=== PATIENT | female | born 1975 | race Hispanic/Latino ===

== ENCOUNTER 2019-07-09 13:28 | Emergency (ER) | payer MEDICARE ==
[2019-07-09] MEDS ORDERED: FAMOTIDINE 20MG TAB 20 MG TAB ONE (14:14)
[2019-07-09] MEDS ORDERED: DEXAMETHASONE SOD PHOSPHATE 10MG/ML 1ML VIAL ONE (14:14)
== END 2019-07-09 15:02 | disposition home or self-care (01) ==
LOC: EDH 13:28
DX: T78.40XA Allergy, unspecified, initial encounter (principal); J45.909 Unspecified asthma, uncomplicated; M79.7 Fibromyalgia; Z88.1 Allergy status to other antibiotic agents; Z88.2 Allergy status to sulfonamides; X58.XXXA Exposure to other specified factors, initial encounter
CPT/HCPCS: 96372; 99283; J1100

== ENCOUNTER 2020-10-08 05:32 | Day surgery (SDC) | payer MEDICARE ==
[2020-10-07 11:25] LABS: BASOPHILS % (AUTO) 0.3 % (0.0-5.0); EOSINOPHILS % (AUTO) 1.6 % (0.0-8.0); HEMATOCRIT 37.9 % (36-48); MEAN CORPUSCULAR HEMOGLOBIN 31.3 pg (27.0-33.0); MEAN CORPUSCULAR HGB CONC 31.1 g/dL (32.0-36.0); MEAN CORPUSCULAR VOLUME 100.5 fL (79-99); MONOCYTES % (AUTO) 7.9 % (3.0-13.0); NEUTROPHILS % (AUTO) 65.2 % (40.0-77.0); PLATELET COUNT (AUTO) 278 K/uL (130-400); RED BLOOD CELL COUNT(AUTO) 3.77 MIL/uL (4.00-5.50); RED CELL DISTRIBUTION WIDTH 13.8 % (11.0-15.5); WHITE BLOOD COUNT (AUTO) 9.5 K/uL (4.8-10.8)
[2020-10-07 14:18] VITALS: BP 115/68
[~2020-10-08] VITALS: Ht 157.5 cm; Wt 56.2 kg
[2020-10-08] VITALS (17 sets, daily range): BP systolic 95–114; BP diastolic 61–74
[~2020-10-08 05:32] MED LIST: PREG150C PO; PYRI60TA2 PO; ZOLP10TA2 PO
[2020-10-08] MEDS: LACTATED RINGERS 1000ML 1,000 ML IV SCH ×2 (07:13→09:45)
[2020-10-08] MEDS ORDERED: CEFAZOLIN SODIUM 1 GM VIAL IVP ONE (08:00)
[2020-10-08] MEDS ORDERED: SUCCINYLCHOLINE 200MG/10ML SYR ONE (08:48)
[2020-10-08] MEDS ORDERED: MIDAZOLAM HCL 1 MG/ML 2ML VIAL ONE (08:49)
[2020-10-08] MEDS ORDERED: PROPOFOL 10 MG/ML 20ML VIAL IV ONE (08:49)
[2020-10-08] MEDS ORDERED: ROCURONIUM 10MG/1ML SYR 10 MG/ML ML ONE (08:49)
[2020-10-08] MEDS ORDERED: FENTANYL CITRATE PF 50 MCG/1 ML 2ML VIAL ONE (08:49)
[2020-10-08] MEDS ORDERED: GLYCOPYRROLATE 1 MG/5 ML SYRINGE ONE (09:23)
[2020-10-08] MEDS ORDERED: NEOSTIGMINE 5MG/5ML SYR IV ONE (09:23)
== END 2020-10-08 11:15 | disposition home or self-care (01) ==
LOC: DAH 05:32
PROVIDERS: ATTEND Obstetrics & Gynecology
DX: R10.2 Pelvic and perineal pain (principal); Z20.822 Contact with and (suspected) exposure to COVID-19; N83.292 Other ovarian cyst, left side; N80.3 Endometriosis of pelvic peritoneum; N80.0 Endometriosis of uterus; D25.2 Subserosal leiomyoma of uterus; G89.29 Other chronic pain; N73.6 Female pelvic peritoneal adhesions (postinfective); E11.9 Type 2 diabetes mellitus without complications; D50.9 Iron deficiency anemia, unspecified; M85.80 Other specified disorders of bone density and structure, unspecified site; F33.8 Other recurrent depressive disorders; J45.909 Unspecified asthma, uncomplicated; E03.9 Hypothyroidism, unspecified; Z98.891 History of uterine scar from previous surgery; Z98.890 Other specified postprocedural states; Z79.899 Other long term (current) drug therapy
CPT/HCPCS: 36415; 58662; 84703; 85025; 86850; 86900; 86901; 87635 ×2; A4215 ×2; A4221; A4222; A4223; A4344; A4351; A4606; A4649 ×2; C1769 ×3; C9803 ×2; J0330; J2250; J2704; J2710; J3010; J3490; J7030